=== PATIENT | male | born 1955 | race African-American/Black ===

== ENCOUNTER 2017-10-14 20:43 | Emergency (ER) | payer SELFPAY ==
[~2017-10-14] VITALS: Ht 193 cm; Wt 100.0 kg
[2017-10-14 21:04] VITALS: BP 143/94; Ht 193 cm; Wt 100.0 kg
[2017-10-14] MEDS ORDERED: LISINOPRIL10 MG PO (21:05)
== END 2017-10-14 22:30 | disposition left against medical advice (07) ==
LOC: D.ER 20:43
DX: I10 Essential (primary) hypertension (principal); F17.200 Nicotine dependence, unspecified, uncomplicated

== ENCOUNTER 2018-06-01 17:24 | Emergency (ER) | payer MEDICAID ==
[~2018-06-01] VITALS: Ht 193 cm; Wt 100.5 kg
[~2018-06-01 17:24] MED LIST: LISINOPRIL10 MG PO
[2018-06-01 17:36] VITALS: Ht 193 cm; Wt 100.5 kg
[2018-06-01] MEDS ORDERED: ROBAXIN500 MG PO (18:07)
[2018-06-01] MEDS ORDERED: TYLENOL #4 W/CO1 TAB PO (18:07)
[2018-06-01 18:34] VITALS: BP 153/105
== END 2018-06-01 18:35 | disposition home or self-care (01) ==
LOC: D.ER 17:24
DX: M79.9 Soft tissue disorder, unspecified (principal); M25.512 Pain in left shoulder; M25.511 Pain in right shoulder

== ENCOUNTER 2018-09-03 06:00 | Day surgery (SDC) | payer MEDICAID ==
[2018-09-02 10:15] LABS: HEMATOCRIT 44.2 % (42.0-54.0); HEMOGLOBIN 15.6 g/dL (13.5-17.5); MCH 30.8 pg (26.0-34.0); MCHC 35.3 g/dL (31.0-37.0); MCV 87.2 fL (80.0-100.0); MEAN PLATELET VOLUME 10.8 fL (7.4-10.4); RBC 5.07 10x6/uL (4.20-6.10); RDW 14.2 % (11.5-14.5)
[~2018-09-03] VITALS: Ht 193 cm; Wt 98.4 kg
[~2018-09-03 06:00] MED LIST changes: +NORVASC10 MG PO; +ROBAXIN500 MG PO; +TYLENOL #4 W/CO1 TAB PO
[2018-09-03] MEDS ORDERED: SULFAMETHOXAZOL1 TA3 PO (07:08)
[2018-09-03 07:20] LABS: CALC OSMOLALITY 278 mosm/kg (275-300); CALCIUM 9.5 mg/dL (8.5-10.1); CHLORIDE - SERUM 106 mmol/L (98-107); GLUCOSE 81 mg/dL (74-106); POTASSIUM - SERUM 4.8 mmol/L (3.5-5.1); SODIUM 140 mmol/L (136-145); UREA NITROGEN 16 mg/dL (7-18); eGFR NON AFRICAN AMERICAN 80 mL/min (90-120)
[2018-09-03 07:35] VITALS: BP 131/76; Ht 193 cm; Wt 98.4 kg
--- NOTE | 2018-09-03 10:34 | NUR ---
DC INSTRUCTIONS GIVEN TO PT/FAMILY. STATE UNDERSTANDING. DC'D IV CATH FULLY INTACT. PT VOIDED. PT LEFT UNIT VIA WC AT 1034
--- NOTE | 2018-09-03 11:56 | OP ---
PATIENT NAME: WILLIAMS HENDRICKS MEDICAL RECORD: [id number] LOCATION:[facility] ADMISSION DATE: SURGEON: RAÚL OKEEFE MD DATE OF OPERATION: 09/03/2018 SURGEON: Raúl Okeefe MD ANESTHESIA: TIVA by Odell Alvarado CRNA DIAGNOSES: Elevated PSA of 10, bladder outlet obstruction. PROCEDURE: Cystoscopy, transrectal ultrasound, and prostate biopsy. FINDINGS: On cystoscopy, obstructive lateral lobes of the prostate. Single ureteral orifices bilaterally with no bladder tumors. There is a small median lobe present. Transrectal ultrasound shows a 42 gram prostate, which is quite wide. Intraprostatic stones and hypoechoic areas were seen. SPECIMENS: Prostate biopsy cores. ESTIMATED BLOOD LOSS: Minimal. CLINICAL HISTORY: This is a 63-year-old black male who is referred for an elevated PSA of 10. He was in [place] last year and the PSA was 14 at that time. He was supposed to have a prostate biopsy, but he moved and he never had it done. His family history is negative for BPH and prostate cancer. However, the patient's father when the patient was age 7, so the family history is not that clear. He does have some slowing of his urinary stream. Today, we are going to perform cystoscopy and a prostate biopsy. He is not allergic to any medications. He was given [employer] litigation paralegal to the OR. DESCRIPTION OF PROCEDURE: The patient was given IV sedation. He was then placed into dorsal lithotomy position and prepped and draped. A 17-Marshallese cystoscope with 30-degree lens was used for visualization. Penile urethra shows no obstruction. There are no strictures or tumors. Prostate shows large lateral lobes, which are obstructive. There is a small median lobe at the bladder neck level. Going into the bladder, the bladder is mildly trabeculated. No bladder tumors were seen. There are single ureteral orifices on each side. The bladder was then emptied through the cystoscope sheath and the scope was removed. We then introduced the transrectal ultrasound probe and prostate size measurements were obtained. The prostate is rather short in length, but it is tall and very wide. We obtained a prostate size measurement of 42 grams. Sextant biopsies were then obtained with at least 3 cores from each sextant. Once all the specimens were obtained, the procedure was terminated. Intraprostatic stones and hypoechoic areas were seen to be quite wide spread through this prostate on ultrasound. I will see him in followup at the end of the week or early next week in order to review the pathology results with him. TRANSINT:[id number] Voice Confirmation ID: [id number] DOCUMENT ID: [id number] OPERATIVE REPORT [id number] WILLIAMS HENDRICKS ROBERT S MD at 1156 CC: [id number] DICTATION DATE: 09/03/18926 JACK OF ALL TRADES: 09/03/[address] [facility] 09/03/18 [id number] [place] [address]
== END 2018-09-03 10:34 | disposition home or self-care (01) ==
LOC: D.OPS 06:00
PROVIDERS: Anesthesiology; ATTEND Urology
DX: N40.1 Benign prostatic hyperplasia with lower urinary tract symptoms (principal); N13.8 Other obstructive and reflux uropathy; N42.0 Calculus of prostate; N32.0 Bladder-neck obstruction; Z01.812 Encounter for preprocedural laboratory examination

== ENCOUNTER → 2019-11-13 13:28 | Outpatient (CLI) | payer OTHER ==
[2018-09-03 07:35] VITALS: BMI 26.4
[~2019-11-13 13:28] MED LIST changes: +SULFAMETHOXAZOL1 TA3 PO
== END | disposition home or self-care (01) ==
LOC: D.RAD 13:28
PROVIDERS: ATTEND Emergency Medicine
DX: M54.2 Cervicalgia (principal)